=== PATIENT | female | born 1945 | race Caucasian/White ===

== ENCOUNTER 2017-05-22 09:06 | Emergency (ER) | payer MEDICARE, BC ==
[~2017-05-22] VITALS: Ht 165.1 cm; Wt 91.1 kg
[~2017-05-22 09:06] MED LIST: ALBU18HF2 INH; ALLO100T PO; BUPR300T54 PO; CALC-793 PO; DIPH1TAB PO; GLIM1TAB46 PO; GUAI600T45 PO; HYDR-568 PO; IBAN150T PO; LACT1CAP65 PO; LOSA100T28 PO; LYR75C PO; OMEG-143 PO; PRAM0.5T3 PO; SUMA50TA PO; THIO300C PO; TOPI100T18 PO; ZOL50T PO
[2017-05-22] MEDS ORDERED: LORazepam 2 mg/ml vial IV ONE (09:20)
[2017-05-22 09:35] LABS: BASOPHILS % (AUTO) 0.8 % (0-1); EOSINOPHILS # (AUTO) 0.3 X10'3 (0-0.9); EOSINOPHILS % (AUTO) 4.7 % (0-6); HEMATOCRIT 38.2 % (35.0-45.0); HEMOGLOBIN 12.8 g/dl (12.0-16.0); LYMPHOCYTES # (AUTO) 1.3 X10'3 (1.1-4.8); LYMPHOCYTES % (AUTO) 24.7 % (21-51); MEAN CORPUSCULAR HEMOGLOBIN 30.8 PG (27.0-31.0); MEAN CORPUSCULAR HGB CONC 33.4 % (33.0-36.5); MEAN CORPUSCULAR VOLUME 92.1 FL (78-98); MEAN PLATELET VOLUME 7.2 FL (7.4-10.4); MONOCYTES # (AUTO) 0.5 X10'3 (0-0.9); MONOCYTES % (AUTO) 9.4 % (2-12); NEUTROPHILS # (AUTO) 3.3 X10'3 (1.8-7.7); NEUTROPHILS % (AUTO) 60.4 % (42-75); PLATELET COUNT 180 X10'3 (140-440); RED BLOOD COUNT 4.14 X10'6 (4.20-5.60); RED CELL DISTRIBUTION WIDTH 14.1 % (11.5-14.5); WHITE BLOOD COUNT 5.4 X10'3 (4.5-11.0)
[2017-05-22 09:44] LABS: INR 0.9 INR; PARTIAL THROMBOPLASTIN TIME 27 SECONDS (22-32); PROTHROMBIN TIME 9.5 SECONDS (9.0-12.0)
[2017-05-22 09:59] LABS: ALANINE AMINOTRANSFERASE 36 U/L (12-78); ALBUMIN 3.5 G/DL (3.4-5.0); ALBUMIN/GLOBULIN RATIO 0.8 (1.1-1.5); ALKALINE PHOSPHATASE 75 IU/L (46-116); ANION GAP 9 (8-16); ASPARTATE AMINO TRANSFERASE 31 U/L (10-37); BILIRUBIN,TOTAL 0.3 MG/DL (0.1-1.0); BLOOD UREA NITROGEN 27 MG/DL (7-18); BUN/CREATININE RATIO 17.9 (6.6-38.0); CALCIUM 9.1 MG/DL (8.5-10.1); CHLORIDE 108 MMOL/L (99-107); CREATININE 1.51 MG/DL (0.40-0.90); ETHANOL < 0.010 GM/DL (0.0-0.010); GLUCOSE 142 MG/DL (70-104); MAGNESIUM 2.1 MG/DL (1.5-2.4); PHOSPHORUS 2.5 MG/DL (2.3-4.5); POTASSIUM 4.1 MMOL/L (3.5-5.1); SODIUM 141 MMOL/L (135-145); TOTAL CARBON DIOXIDE 23.7 MMOL/L (24-32); TOTAL PROTEIN 7.8 G/DL (6.4-8.2); eGFR 34 ML/MIN
[2017-05-22 10:35] VITALS: BP_SYST 153
[2017-05-22 10:57] LABS: COLOR,URINE YELLOW (Yellow); GLUCOSE, URINE NEGATIVE (Neg); KETONES,URINE NEGATIVE (Neg); LEUKOCYTE ESTERASE ,URINE NEGATIVE (Neg); NITRITES, URINE NEGATIVE (Neg); OCCULT BLOOD,URINE TRACE-INTACT (Neg); PH,URINE 5.5 (4.8-8.0); PROTEIN,URINE TRACE mg/dl (Neg); UROBILINOGEN,URINE 0.2 E.U/dL (0.2-1.0)
[2017-05-22 10:59] LABS: UA COLLECTION TYPE NON-SPECIFIED
[2017-05-22 11:00] LABS: CLARITY,URINE SLIGHTLY CLOUDY (Clear)
[2017-05-22 11:05] LABS: URINE AMPHETAMINE SCREEN NEGATIVE (Neg); URINE BARBITUATE SCREEN NEGATIVE (Neg); URINE BENZODIAZEPINES SCREEN NEGATIVE (Neg); URINE CANNABINOID SCREEN NEGATIVE (Neg); URINE COCAINE SCREEN NEGATIVE (Neg); URINE METHADONE SCREEN NEGATIVE (Neg); URINE OPIATE SCREEN NEGATIVE (Neg); URINE PHENCYCLIDINE SCREEN NEGATIVE (Neg)
[2017-05-22 11:06] LABS: HYALINE CASTS 0-3 /LPF (NEGATIVE); MUCUS STRANDS FEW /LPF (Neg); SQUAMOUS EPITHELIAL CELL,UR MODERATE /LPF (FEW); TRANSITIONAL EPI CELLS,URINE MODERATE /HPF
[2017-05-22 11:07] LABS: BACTERIA,URINE NONE SEEN /HPF (Neg); RBC,URINE 0-2 /HPF (0-2); WBC,URINE 0-4 /HPF (0-4)
[2017-05-22 11:30] VITALS: BP_DIAS 150
== END 2017-05-22 11:31 | disposition home or self-care (01) ==
LOC: ER 09:08
DX: R20.2 Paresthesia of skin (principal); R20.0 Anesthesia of skin; I10 Essential (primary) hypertension; E11.9 Type 2 diabetes mellitus without complications; Z88.0 Allergy status to penicillin; Z79.899 Other long term (current) drug therapy; Z86.73 Personal history of transient ischemic attack (TIA), and cerebral infarction without residual deficits; Z88.5 Allergy status to narcotic agent; Z88.1 Allergy status to other antibiotic agents
CPT/HCPCS: 36415; 70450; 80053; 80305; 80320; 81001; 82948; 83735; 84100; 84443; 84484; 85025; 85610; 85730; 93005; 96374; 99285; J2060

== ENCOUNTER 2019-02-27 11:35 | Inpatient (IN) | payer MEDICARE, BC ==
[~2019-02-27] VITALS: Ht 163.8 cm; Wt 96.3 kg
[2019-02-27 06:00] VITALS: BP 111/73
[~2019-02-27 11:35] MED LIST changes: +AMA1T PO; +BUPR-319 PO; -BUPR300T54 PO; -GLIM1TAB46 PO; +HYDR-4384 PO; -HYDR-568 PO; -IBAN150T PO; +IBAN150T16 PO; -LOSA100T28 PO; +LOSA100T57 PO; +SERT-153 PO; +TOP100T PO; -TOPI100T18 PO; -ZOL50T PO
--- NOTE | 2019-02-27 12:09 | NUR ---
DR POSEY AT BEDSIDE FOR EVALAUTION, PT REPORTS WOKE THIS MORNING AND FELT UNSTEADY SIMILAR TO WHEN YOU ARE DRUNK, ABLE TO WALK BUT STUMBLED AND FELL WHILE WALKING TO BATHROOM AFTER WAKING TODAY, PT DENIES HITTING HEAD, PT REPORTS LEFT EYE SWELLING, HX OF 3 STROKES AFFECTING LEFT SIDE IN THE PAST, PT HAS REDNESS AND SWELLING TO LEFT EYELID, PT REPORTS HX OF ASTHMA, FIRST STROKE 2007, AND SECOND 02/21/2017, PT HAS PACEMAKER, PT HX AFIB TAKING ELIQUIS, PT REPORTS DIFFICULTY SEEING OUT OF LEFT EYE PT HAS INCREASED BLURRED VISION TO LEFT EYE. 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
[2019-02-27 12:21] LABS: BASOPHILS % (AUTO) 0.6 % (0-1); EOSINOPHILS # (AUTO) 0.1 X10'3 (0-0.9); EOSINOPHILS % (AUTO) 1.5 % (0-6); HEMATOCRIT 37.2 % (35.0-45.0); HEMOGLOBIN 12.1 g/dl (12.0-16.0); LYMPHOCYTES # (AUTO) 1.1 X10'3 (1.1-4.8); LYMPHOCYTES % (AUTO) 14.8 % (21-51); MEAN CORPUSCULAR HEMOGLOBIN 28.5 PG (27.0-31.0); MEAN CORPUSCULAR HGB CONC 32.5 g/dL (33.0-36.5); MEAN CORPUSCULAR VOLUME 87.7 FL (78-98); MEAN PLATELET VOLUME 7.6 FL (7.4-10.4); MONOCYTES # (AUTO) 0.6 X10'3 (0-0.9); MONOCYTES % (AUTO) 8.3 % (2-12); NEUTROPHILS # (AUTO) 5.7 X10'3 (1.8-7.7); NEUTROPHILS % (AUTO) 74.8 % (42-75); PLATELET COUNT 199 X10'3 (140-440); RED BLOOD COUNT 4.24 X10'6 (4.20-5.60); RED CELL DISTRIBUTION WIDTH 15.8 % (11.5-14.5); WHITE BLOOD COUNT 7.7 X10'3 (4.5-11.0)
[2019-02-27] MEDS ORDERED: proparacaine 0.5% ophthalmic drops 15ml EACHEYE ONE (12:30)
[2019-02-27 12:35] LABS: PARTIAL THROMBOPLASTIN TIME 29 SECONDS (22-32)
--- NOTE | 2019-02-27 12:35 | NUR ---
EYE CART PLACED AT BEDSIDE WITH ALCAINEDR POSEY AT BEDSIDE FOR EYE EVALUATION
[2019-02-27 12:39] LABS: ALANINE AMINOTRANSFERASE 50 U/L (12-78); ALBUMIN 3.4 G/DL (3.4-5.0); ALBUMIN/GLOBULIN RATIO 0.8 (1.1-1.5); ALKALINE PHOSPHATASE 134 IU/L (46-116); ANION GAP 9 (8-16); ASPARTATE AMINO TRANSFERASE 37 U/L (10-37); BILIRUBIN,TOTAL 0.3 MG/DL (0.1-1.0); BLOOD UREA NITROGEN 26 MG/DL (7-18); BUN/CREATININE RATIO 18.6 (6.6-38.0); CALCIUM 9.2 MG/DL (8.5-10.1); CHLORIDE 104 MMOL/L (99-107); GLUCOSE 218 MG/DL (70-104); POTASSIUM 3.7 MMOL/L (3.5-5.1); SODIUM 138 MMOL/L (135-145); TOTAL CARBON DIOXIDE 25.1 MMOL/L (24-32); TOTAL PROTEIN 7.8 G/DL (6.4-8.2); eGFR 37 ML/MIN
[2019-02-27 12:42] LABS: TROPONIN I 0.07 NG/ML (0.0-0.05)
[2019-02-27] MEDS ORDERED: cephalexin 250mg capsule PO ONE (12:45)
[2019-02-27] MEDS ORDERED: aspirin 325mg tablet PO ONE (12:50)
[2019-02-27] MEDS: moxifloxacin 0.5% ophthalmic drops 3ml LEFTEYE SCH ×2 (13:08→20:47)
--- NOTE | 2019-02-27 13:09 | NUR ---
TELENEURO CONSULT HAS BEEN INITIATED
--- NOTE | 2019-02-27 13:38 | NUR ---
relieving RN for lunch, teleneuro evaluating pt
[2019-02-27] MEDS ORDERED: APIX5TAB3 PO (13:57)
[2019-02-27] MEDS ORDERED: AMIT50TA3 PO (14:43)
[2019-02-27] MEDS ORDERED: GABA-532 PO (14:43)
[2019-02-27] MEDS ORDERED: FLO44IN IH (14:43)
[2019-02-27] MEDS ORDERED: CHOL200016 PO (14:43)
[2019-02-27] MEDS ORDERED: MULT-1007 PO (14:43)
[2019-02-27] MEDS ORDERED: FLUT16SP2 BOTHNARES (14:43)
[2019-02-27] MEDS ORDERED: MAGN400T28 PO (14:43)
[2019-02-27] MEDS ORDERED: TOPI200T16 PO (14:43)
--- NOTE | 2019-02-27 16:12 | NUR ---
Patient currently sleeping. Breathing spontaneously. Not complaining of pain. Will continue to monitor
[2019-02-27] MEDS ORDERED: glucagon, human recombinant 1mg kit SUBCUT PRN (16:55)
[2019-02-27] MEDS ORDERED: magnesium 4gm in 100ml NS 100 ML IV PRN (16:55)
[2019-02-27] MEDS ORDERED: magnesium Cl slow-release 64mg tablet PO PRN (16:55)
[2019-02-27] MEDS ORDERED: diphenhydrAMINE 25mg capsule PO PRN (16:55)
[2019-02-27] MEDS ORDERED: dextrose ORAL solution 15 GM/59 ML bottle PO PRN ×2 (16:55)
[2019-02-27] MEDS ORDERED: non-formulary drug (Ibandronate Sodium (Boniva) 1 TAB) PO SCH (16:55)
[2019-02-27] MEDS ORDERED: dextrose 50%-water 50ml dispensing syringe IV PRN ×2 (16:55)
[2019-02-27] MEDS ORDERED: SUMAtriptan 25 MG tablet PO PRN (16:55)
[2019-02-27] MEDS ORDERED: magnesium hydroxide 30ml (MOM) UD suspension PO PRN (16:55)
[2019-02-27] MEDS ORDERED: magnesium 2GM in 50ml NS 50 ML IV PRN (16:55)
[2019-02-27] MEDS ORDERED: acetaminophen 650mg rectal suppository RC PRN (16:55)
[2019-02-27] MEDS ORDERED: MESSAGE TO PHARMACY PO ONE (16:55)
[2019-02-27] MEDS ORDERED: acetaminophen 325mg tablet PO PRN ×2 (16:55)
[2019-02-27] MEDS ORDERED: mag hydrox/Alum hydrox/simeth 30ml oral suspension PO PRN (16:55)
[2019-02-27] MEDS ORDERED: potassium Cl 20 mEq SR tablet PO PRN ×2 (16:55)
[2019-02-27] MEDS ORDERED: potassium CL 10mEq/100ml bag 100 ML IV PRN ×2 (16:55)
[2019-02-27] MEDS ORDERED: bisacodyl 10mg suppository rectal RC PRN (16:55)
[2019-02-27] MEDS ORDERED: ondansetron/PF 4mg/2ml inj IV PRN (16:55)
[2019-02-27] MEDS ORDERED: diphenoxylate/atropine tablet (Lomotil) PO PRN (16:55)
[2019-02-27 17:30] LABS: CHOLESTEROL 175 MG/DL (0-200); HDL CHOLESTEROL 58 MG/DL (35-60); LDL CHOLESTEROL 105 MG/DL (50-100); TRIGLYCERIDES 115 MG/DL (20-135)
[2019-02-27 17:34] LABS: HEMOGLOBIN A1C 9.2 % (4.5-6.2)
--- NOTE | 2019-02-27 19:00 | NUR ---
Patient in room [facility]TH[facility] 4006. I have received report from MARIBELL Noriega and had the opportunity to ask questions and assume patient care.
--- NOTE | 2019-02-27 19:04 | NUR ---
both cultures have been drawn - pt to Floor just after lab draw.
[2019-02-27 19:32] VITALS: BP 143/68
[2019-02-27] MEDS ORDERED: moxifloxacin 0.5% ophthalmic drops 3ml LEFTEYE SCH (20:00)
[2019-02-27] MEDS: K and/or MAG REPLACEMENT MC SCH (20:00)
[2019-02-27] MEDS: amitriptyline 50mg tablet PO SCH (20:31)
[2019-02-27] MEDS: pramipexole 0.25mg tablet PO SCH (20:31)
[2019-02-27] MEDS: topiramate 100mg tablet PO SCH (20:32)
[2019-02-27] MEDS: gabapentin 300mg capsule PO SCH (20:32)
[2019-02-27] MEDS: apixaban 5mg tablet PO SCH (20:33)
[2019-02-27] MEDS: allopurinol 100mg tablet PO SCH (20:33)
[2019-02-27] MEDS: magnesium oxide 400mg tablet PO SCH (20:44)
[2019-02-27] MEDS: normal saline 1000ml 1,000 ML IV SCH (20:50)
[2019-02-27] MEDS: budesonide 0.5mg/2ml UD nebule IH SCH (20:53)
[2019-02-27] MEDS: albuterol 2.5 MG/3 ML nebule NEB PRN (20:53)
[2019-02-27] MEDS ORDERED: FISH OIL PO SCH (21:00)
[2019-02-27] MEDS ORDERED: DHA PO SCH (21:00)
[2019-02-27] MEDS ORDERED: EPA PO SCH (21:00)
[2019-02-27] MEDS ORDERED: OMEGA PO SCH (21:00)
[2019-02-27 22:00] VITALS: BP 122/83
[2019-02-27] MEDS: insulin glargine (Lantus) pen - multi-dose SQ SCH (22:12)
[2019-02-28] MEDS: cefepime 1GM in D5W 50mL 50 ML IV SCH (00:35)
[2019-02-28] MEDS: VANCOmycin 1250MG/NS 250ml Bag 250 ML IV SCH (01:16)
[2019-02-28 01:43] LABS: COLOR,URINE YELLOW (Yellow); GLUCOSE, URINE 250 mg/dl (Neg); KETONES,URINE NEGATIVE (Neg); LEUKOCYTE ESTERASE ,URINE NEGATIVE (Neg); NITRITES, URINE NEGATIVE (Neg); OCCULT BLOOD,URINE TRACE-INTACT (Neg); PH,URINE 5.5 (4.8-8.0); PROTEIN,URINE 100 mg/dl (Neg); UROBILINOGEN,URINE 0.2 E.U/dL (0.2-1.0)
[2019-02-28 01:49] LABS: CLARITY,URINE SLIGHTLY CLOUDY (Clear); UA COLLECTION TYPE VOIDED
[2019-02-28] MEDS: moxifloxacin 0.5% ophthalmic drops 3ml LEFTEYE SCH ×4 (01:49→21:00)
[2019-02-28 01:50] LABS: WBC,URINE 0-4 /HPF (0-4)
[2019-02-28 01:51] LABS: BACTERIA,URINE 1+ /HPF (Neg); RBC,URINE 0-2 /HPF (0-2); SQUAMOUS EPITHELIAL CELL,UR MANY /LPF (FEW)
[2019-02-28 01:52] LABS: FINE GRANULAR CAST 0-3 /LPF (NEGATIVE); HYALINE CASTS 0-3 /LPF (NEGATIVE); RENAL CELLS, URINE FEW /HPF; TRANSITIONAL EPI CELLS,URINE FEW /HPF
[2019-02-28] MEDS ORDERED: polyvinyl alcohol ophthalmic drops 15ml bottle EACHEYE PRN (02:10)
[2019-02-28] MEDS: normal saline 1000ml 1,000 ML IV SCH ×3 (02:54→22:54)
[2019-02-28 06:00] VITALS: BP_SYST 111; BP_SYST 126; BP_SYST 145; BP_DIAS 72; BP_DIAS 73; BP_DIAS 88
[2019-02-28 06:13] LABS: BASOPHILS % (AUTO) 0.4 % (0-1); EOSINOPHILS # (AUTO) 0.2 X10'3 (0-0.9); EOSINOPHILS % (AUTO) 2.4 % (0-6); HEMATOCRIT 36.7 % (35.0-45.0); HEMOGLOBIN 12.1 g/dl (12.0-16.0); LYMPHOCYTES % (AUTO) 11.4 % (21-51); MEAN CORPUSCULAR HEMOGLOBIN 29.2 PG (27.0-31.0); MEAN CORPUSCULAR HGB CONC 32.9 g/dL (33.0-36.5); MEAN CORPUSCULAR VOLUME 88.5 FL (78-98); MEAN PLATELET VOLUME 7.7 FL (7.4-10.4); MONOCYTES # (AUTO) 0.8 X10'3 (0-0.9); MONOCYTES % (AUTO) 9.1 % (2-12); NEUTROPHILS # (AUTO) 6.7 X10'3 (1.8-7.7); NEUTROPHILS % (AUTO) 76.7 % (42-75); PLATELET COUNT 201 X10'3 (140-440); RED BLOOD COUNT 4.15 X10'6 (4.20-5.60); RED CELL DISTRIBUTION WIDTH 15.7 % (11.5-14.5); WHITE BLOOD COUNT 8.7 X10'3 (4.5-11.0)
--- NOTE | 2019-02-28 06:28 | NUR ---
Problems reprioritized. Patient report given, questions answered & plan of care reviewed with MARIBELL Gomez. Addendum: 02/28/19 at 0628 by Leann Orellana RN Amended: Links added.
[2019-02-28 06:33] LABS: ALANINE AMINOTRANSFERASE 54 U/L (12-78); ALBUMIN 3.1 G/DL (3.4-5.0); ALBUMIN/GLOBULIN RATIO 0.7 (1.1-1.5); ALKALINE PHOSPHATASE 124 IU/L (46-116); ANION GAP 9 (8-16); ASPARTATE AMINO TRANSFERASE 83 U/L (10-37); BILIRUBIN,TOTAL 0.2 MG/DL (0.1-1.0); BLOOD UREA NITROGEN 28 MG/DL (7-18); BUN/CREATININE RATIO 18.5 (6.6-38.0); CHLORIDE 107 MMOL/L (99-107); CHOL/HDL RATIO 3.4 (0.00-4.99); CHOLESTEROL 170 MG/DL (0-200); CREATININE 1.51 MG/DL (0.40-0.90); GLUCOSE 231 MG/DL (70-104); HDL CHOLESTEROL 50 MG/DL (35-60); LDL CHOLESTEROL 101 MG/DL (50-100); PHOSPHORUS 3.9 MG/DL (2.3-4.5); POTASSIUM 4.2 MMOL/L (3.5-5.1); SODIUM 140 MMOL/L (135-145); TOTAL CARBON DIOXIDE 23.9 MMOL/L (24-32); TOTAL PROTEIN 7.6 G/DL (6.4-8.2); TRIGLYCERIDES 162 MG/DL (20-135); eGFR 34 ML/MIN
--- NOTE | 2019-02-28 06:34 | NUR ---
Problems reprioritized. Patient report given, questions answered & plan of care reviewed with MARIBELL Gomez.
--- NOTE | 2019-02-28 06:35 | NUR ---
Patient in room ORTHO 4006. I have received report from Carol Ann REYNA and had the opportunity to ask questions and assume patient care.
[2019-02-28] MEDS: K and/or MAG REPLACEMENT MC SCH ×2 (06:58→21:59)
[2019-02-28] MEDS: aspirin 81mg tablet.DR PO SCH (07:20)
[2019-02-28] MEDS: apixaban 5mg tablet PO SCH ×2 (07:20→21:01)
[2019-02-28] MEDS: magnesium oxide 400mg tablet PO SCH ×2 (07:20→21:59)
[2019-02-28] MEDS: multivitamins, therapeutics tablet PO SCH (07:20)
[2019-02-28] MEDS: vitamin D (cholecalciferol) 1,000 unit tablet PO SCH (07:20)
[2019-02-28] MEDS: atorvastatin 10mg tablet PO SCH (07:20)
[2019-02-28] MEDS: gabapentin 300mg capsule PO SCH ×2 (07:20→21:00)
[2019-02-28] MEDS: losartan 50mg tablet PO SCH (07:20)
[2019-02-28] MEDS: sertraline 50mg tablet PO SCH (07:20)
[2019-02-28] MEDS: fluticasone nasal spray 16GM bottle NS SCH (07:22)
[2019-02-28] MEDS: budesonide 0.5mg/2ml UD nebule IH SCH ×2 (07:47→20:32)
[2019-02-28] MEDS ORDERED: non-formulary drug (Lactobacillus Acidophilus (Probiotic) 1 CAP) PO SCH (08:00)
[2019-02-28] MEDS ORDERED: BUPROPION HCL 450 MG PO SCH (08:00)
--- NOTE | 2019-02-28 08:29 | NUR ---
left eye has conjunctivitis and does not open well to see pupil reaction. Addendum: 02/28/19 at 0832 by Jason Nicole RN Amended: Links added.
[2019-02-28] MEDS: insulin Lispro (HumaLOG) vial - multi-dose SQ SCH ×2 (09:04→14:04)
--- NOTE | 2019-02-28 09:57 | NUR ---
Jason [id number] Re: Jerod Rojas Pt going for MRI and ask for something to help reduce her claustrophobia.
[2019-02-28 10:00] VITALS: BP 108/52
[2019-02-28 10:08] VITALS: BP_SYST 108; BP_SYST 121; BP_SYST 124; BP_DIAS 52; BP_DIAS 74; BP_DIAS 79
[2019-02-28] MEDS ORDERED: LORazepam 2 mg/ml vial IV ONE (10:30)
[2019-02-28] MEDS: buPROPion SR 150mg tablet PO SCH (10:43)
[2019-02-28] MEDS: topiramate 100mg tablet PO SCH ×2 (12:56→21:00)
--- NOTE | 2019-02-28 13:37 | NUR ---
Jason [id number] Re: Yumiko Rojas Pt pacemaker is not compatible with MRI and we cant get MRI done.
[2019-02-28 14:00] VITALS: BP 111/57
--- NOTE | 2019-02-28 15:32 | NUR ---
DM Consult: Pt admit w/ r/o stroke hx T2DM, TIA. A1C 9.2 and TG 162 on admit. Pt receiving vascular ultrasound during RD attempt to visit. Pt will need DM/HH eds prior to d/c. Will continue to monitor. Addendum: 02/28/19 at [address] Amended: Links added.
[2019-02-28] MEDS ORDERED: iohexol 300mg/ml 100ml inj. ONE (15:39)
[2019-02-28 18:00] VITALS: BP 113/47
--- NOTE | 2019-02-28 18:03 | NUR ---
Jason [id number] Re: Yumiko Rojas blood sugar 60, started protocol. Gave 25mg of dextrose now BS 110.
--- NOTE | 2019-02-28 18:25 | NUR ---
Problems reprioritized. Patient report given, questions answered & plan of care reviewed with Carol Ann REYNA.
[2019-02-28] MEDS: allopurinol 100mg tablet PO SCH (21:00)
[2019-02-28] MEDS ORDERED: buPROPion SR 150mg tablet PO SCH (21:00)
[2019-02-28] MEDS: insulin glargine (Lantus) pen - multi-dose SQ SCH (21:00)
[2019-02-28] MEDS: pramipexole 0.25mg tablet PO SCH (21:01)
[2019-02-28] MEDS: amitriptyline 50mg tablet PO SCH (21:59)
[2019-02-28 22:00] VITALS: BP_SYST 129; BP_SYST 133; BP_SYST 147; BP_DIAS 72; BP_DIAS 73; BP_DIAS 79
[2019-03-01] MEDS: cefepime 1GM in D5W 50mL 50 ML IV SCH (00:08)
[2019-03-01] MEDS: VANCOmycin 1250MG/NS 250ml Bag 250 ML IV SCH (01:32)
[2019-03-01 06:00] VITALS: BP 144/67
--- NOTE | 2019-03-01 06:18 | NUR ---
Problems reprioritized. Patient report given, questions answered & plan of care reviewed with MARIBELL Easley.
[2019-03-01 06:32] LABS: BASOPHILS % (AUTO) 0.5 % (0-1); EOSINOPHILS # (AUTO) 0.2 X10'3 (0-0.9); EOSINOPHILS % (AUTO) 3.2 % (0-6); HEMATOCRIT 35.2 % (35.0-45.0); HEMOGLOBIN 11.2 g/dl (12.0-16.0); LYMPHOCYTES % (AUTO) 13.6 % (21-51); MEAN CORPUSCULAR HEMOGLOBIN 28.7 PG (27.0-31.0); MEAN CORPUSCULAR HGB CONC 31.9 g/dL (33.0-36.5); MEAN PLATELET VOLUME 7.8 FL (7.4-10.4); MONOCYTES # (AUTO) 0.7 X10'3 (0-0.9); NEUTROPHILS # (AUTO) 5.2 X10'3 (1.8-7.7); NEUTROPHILS % (AUTO) 72.7 % (42-75); PLATELET COUNT 180 X10'3 (140-440); RED BLOOD COUNT 3.92 X10'6 (4.20-5.60); RED CELL DISTRIBUTION WIDTH 15.5 % (11.5-14.5); WHITE BLOOD COUNT 7.1 X10'3 (4.5-11.0)
[2019-03-01 06:51] LABS: ALANINE AMINOTRANSFERASE 48 U/L (12-78); ALBUMIN 2.9 G/DL (3.4-5.0); ALBUMIN/GLOBULIN RATIO 0.7 (1.1-1.5); ALKALINE PHOSPHATASE 114 IU/L (46-116); ANION GAP 12 (8-16); ASPARTATE AMINO TRANSFERASE 68 U/L (10-37); BILIRUBIN,TOTAL 0.3 MG/DL (0.1-1.0); BLOOD UREA NITROGEN 31 MG/DL (7-18); BUN/CREATININE RATIO 19.1 (6.6-38.0); CALCIUM 8.4 MG/DL (8.5-10.1); CHLORIDE 107 MMOL/L (99-107); CREATININE 1.62 MG/DL (0.40-0.90); GLUCOSE 196 MG/DL (70-104); PHOSPHORUS 3.9 MG/DL (2.3-4.5); SODIUM 139 MMOL/L (135-145); TOTAL CARBON DIOXIDE 20.5 MMOL/L (24-32); TROPONIN I 0.05 NG/ML (0.0-0.05); eGFR 31 ML/MIN
[2019-03-01] MEDS: K and/or MAG REPLACEMENT MC SCH (08:00)
[2019-03-01] MEDS: atorvastatin 10mg tablet PO SCH (08:00)
[2019-03-01] MEDS: fluticasone nasal spray 16GM bottle NS SCH (08:20)
[2019-03-01] MEDS: moxifloxacin 0.5% ophthalmic drops 3ml LEFTEYE SCH ×2 (08:20→12:54)
[2019-03-01] MEDS: sertraline 50mg tablet PO SCH (08:21)
[2019-03-01] MEDS: aspirin 81mg tablet.DR PO SCH (08:21)
[2019-03-01] MEDS: losartan 50mg tablet PO SCH (08:21)
[2019-03-01] MEDS: apixaban 5mg tablet PO SCH (08:21)
[2019-03-01] MEDS: magnesium oxide 400mg tablet PO SCH (08:22)
[2019-03-01] MEDS: multivitamins, therapeutics tablet PO SCH (08:23)
[2019-03-01] MEDS: buPROPion SR 150mg tablet PO SCH (08:23)
[2019-03-01] MEDS: gabapentin 300mg capsule PO SCH (08:23)
[2019-03-01] MEDS: vitamin D (cholecalciferol) 1,000 unit tablet PO SCH (08:23)
[2019-03-01] MEDS: albuterol 2.5 MG/3 ML nebule NEB PRN (08:57)
[2019-03-01] MEDS: budesonide 0.5mg/2ml UD nebule IH SCH (08:58)
[2019-03-01] MEDS: insulin Lispro (HumaLOG) vial - multi-dose SQ SCH ×2 (09:03→14:13)
[2019-03-01 10:00] VITALS: BP 134/65
[2019-03-01] MEDS: topiramate 100mg tablet PO SCH (12:54)
[2019-03-01] MEDS ORDERED: ATOR10TA PO (15:21)
[2019-03-01] MEDS ORDERED: CEFD300C3 PO (15:21)
[2019-03-01] MEDS ORDERED: POLY15DR31 EACHEYE (15:21)
[2019-03-01] MEDS ORDERED: VIG0.5OS LEFTEYE (15:21)
[2019-03-01] MEDS ORDERED: DOXY-224 PO (15:21)
[2019-03-01] MEDS ORDERED: ASPI-1071 PO (15:21)
[2019-03-01] MEDS ORDERED: DOXYCYCLINE 100MG CAPSULE PO SCH (17:30)
[2019-03-03] MEDS ORDERED: VANCOMYCIN LEVEL IV ONE (00:30)
--- NOTE | 2019-03-05 15:25 | NUR ---
Case Management DC follow up: spoke to pt via telephone. pt reports L eye swelling has gone down an she can see again. Denies numbness & weakness to either side, notably L side. Assured HH nurse has been to visit and is assisting pt with ADLs and keeping her medications in order. Pt states she understands what her meds are for, sometimes forgets to take so she has help. Pt has yet to make follow up appts but states her HH nurse will assist. All needs met and questions answered at DC, No further questions at this time
== END 2019-03-01 17:05 | disposition home health service (06) | DRG 602 ==
LOC: ER 11:35 → ED HOLD 16:54 → ORTHO 4S 19:13
PROVIDERS: ADMIT Family Medicine; ATTEND Family Medicine
PROC: BW281ZZ Computerized Tomography (CT Scan) of Head using Low Osmolar Contrast (ICD-10-PCS; principal; 2019-02-28)
PROC: B82 Imaging, Eye, Computerized Tomography (CT Scan) (ICD-10-PCS; 2019-02-28)
DX: L03.213 Periorbital cellulitis (principal); G92 Toxic encephalopathy; I21.A1 Myocardial infarction type 2; N17.9 Acute kidney failure, unspecified; I69.354 Hemiplegia and hemiparesis following cerebral infarction affecting left non-dominant side; F32.9 Major depressive disorder, single episode, unspecified; E66.01 Morbid (severe) obesity due to excess calories; H10.9 Unspecified conjunctivitis; E11.22 Type 2 diabetes mellitus with diabetic chronic kidney disease; E11.51 Type 2 diabetes mellitus with diabetic peripheral angiopathy without gangrene; F41.9 Anxiety disorder, unspecified; Z96.652 Presence of left artificial knee joint; G43.909 Migraine, unspecified, not intractable, without status migrainosus; G47.33 Obstructive sleep apnea (adult) (pediatric); W06.XXXA Fall from bed, initial encounter; I48.0 Paroxysmal atrial fibrillation; I12.9 Hypertensive chronic kidney disease with stage 1 through stage 4 chronic kidney disease, or unspecified chronic kidney disease; I49.5 Sick sinus syndrome; J44.9 Chronic obstructive pulmonary disease, unspecified; M06.9 Rheumatoid arthritis, unspecified; M10.9 Gout, unspecified; M19.90 Unspecified osteoarthritis, unspecified site; N18.9 Chronic kidney disease, unspecified; Z79.01 Long term (current) use of anticoagulants; Z79.899 Other long term (current) drug therapy; Z80.3 Family history of malignant neoplasm of breast; Z88.0 Allergy status to penicillin; Z88.1 Allergy status to other antibiotic agents; Z95.0 Presence of cardiac pacemaker; Z98.42 Cataract extraction status, left eye; Z98.41 Cataract extraction status, right eye; Y93.89 Activity, other specified; Y92.89 Other specified places as the place of occurrence of the external cause; Y99.8 Other external cause status; Z88.5 Allergy status to narcotic agent; Z68.35 Body mass index [BMI] 35.0-35.9, adult; Z90.49 Acquired absence of other specified parts of digestive tract
CPT/HCPCS: 36415; 70450; 70460; 70482; 71045; 80053; 80061; 81001; 82948; 83036; 83605; 83735; 84100; 84484; 85025; 85610; 85651; 85730; 87040; 87081; 92508; 92616; 93005; 93306; 93880; 94640; 94760; 97116; 97161; 97530; 99285; G0378; J0692; J1815; J2060; J3370; J7030; J7626; Q9967

== ENCOUNTER 2019-03-25 18:44 | Emergency (ER) | payer MEDICARE, BC ==
[~2019-03-25] VITALS: Ht 162.6 cm; Wt 100.0 kg
[~2019-03-25 18:44] MED LIST changes: +AMIT50TA3 PO; +APIX5TAB3 PO; +ASPI-1071 PO; +ATOR10TA PO; -CALC-793 PO; +CEFD300C3 PO; +CHOL200016 PO; +DOXY-224 PO; +FLO44IN IH; +FLUT16SP2 BOTHNARES; +GABA-532 PO; -HYDR-4384 PO; -LYR75C PO; +MAGN400T28 PO; +MULT-1007 PO; +POLY15DR31 EACHEYE; -THIO300C PO; +TOPI200T16 PO; +VIG0.5OS LEFTEYE
[2019-03-25 19:09] VITALS: BP 162/126
[2019-03-25] MEDS ORDERED: ONDA4TAB6 PO (20:40)
[2019-03-25] MEDS ORDERED: FAMC500T23 PO (20:40)
[2019-03-25] MEDS ORDERED: LIDO30CR23 TOP (20:40)
[2019-03-25] MEDS ORDERED: HYDR-4383 PO (20:40)
[2019-03-25] MEDS ORDERED: HYDROcodone/acetaminophen 5mg/325mg tablet PO ONE (20:45)
[2019-03-25] MEDS ORDERED: LIDOcaine/PRILOcaine 5gm cream TP ONE (20:45)
[2019-03-25] MEDS ORDERED: ondansetron 4mg rapidly disintigrating tab PO ONE (20:45)
== END 2019-03-25 21:14 | disposition home or self-care (01) ==
LOC: ER 18:45
DX: B02.9 Zoster without complications (principal); M54.5 Low back pain; R21 Rash and other nonspecific skin eruption; I10 Essential (primary) hypertension; E11.9 Type 2 diabetes mellitus without complications; Z86.73 Personal history of transient ischemic attack (TIA), and cerebral infarction without residual deficits; Z88.0 Allergy status to penicillin; Z88.5 Allergy status to narcotic agent; Z88.1 Allergy status to other antibiotic agents; Z79.01 Long term (current) use of anticoagulants; Z79.82 Long term (current) use of aspirin; Z79.899 Other long term (current) drug therapy
CPT/HCPCS: 99284

== ENCOUNTER 2019-04-04 10:55 | Emergency (ER) | payer MEDICARE, BC ==
[~2019-04-04] VITALS: Ht 162.6 cm; Wt 108.2 kg
[~2019-04-04 10:55] MED LIST changes: -CEFD300C3 PO; +FAMC500T23 PO; +HYDR-4383 PO; +LIDO30CR23 TOP; +ONDA4TAB6 PO
[2019-04-04 12:20] LABS: BASOPHILS % (AUTO) 0.5 % (0-1); EOSINOPHILS # (AUTO) 0.1 X10'3 (0-0.9); EOSINOPHILS % (AUTO) 1.7 % (0-6); HEMATOCRIT 36.7 % (35.0-45.0); HEMOGLOBIN 11.9 g/dl (12.0-16.0); LYMPHOCYTES # (AUTO) 1.2 X10'3 (1.1-4.8); LYMPHOCYTES % (AUTO) 19.4 % (21-51); MEAN CORPUSCULAR HEMOGLOBIN 28.8 PG (27.0-31.0); MEAN CORPUSCULAR HGB CONC 32.4 g/dL (33.0-36.5); MEAN CORPUSCULAR VOLUME 88.7 FL (78-98); MEAN PLATELET VOLUME 7.8 FL (7.4-10.4); MONOCYTES # (AUTO) 0.8 X10'3 (0-0.9); MONOCYTES % (AUTO) 12.3 % (2-12); NEUTROPHILS # (AUTO) 4.1 X10'3 (1.8-7.7); NEUTROPHILS % (AUTO) 66.1 % (42-75); PLATELET COUNT 172 X10'3 (140-440); RED BLOOD COUNT 4.13 X10'6 (4.20-5.60); RED CELL DISTRIBUTION WIDTH 16.1 % (11.5-14.5); WHITE BLOOD COUNT 6.2 X10'3 (4.5-11.0)
[2019-04-04 12:32] LABS: PARTIAL THROMBOPLASTIN TIME 39 SECONDS (22-32)
[2019-04-04 13:54] VITALS: BP 165/91
== END 2019-04-04 13:48 | disposition home or self-care (01) ==
LOC: ER 10:56
DX: S50.12XA Contusion of left forearm, initial encounter (principal); I10 Essential (primary) hypertension; E11.9 Type 2 diabetes mellitus without complications; Z86.73 Personal history of transient ischemic attack (TIA), and cerebral infarction without residual deficits; Z88.0 Allergy status to penicillin; Z88.1 Allergy status to other antibiotic agents; Z88.5 Allergy status to narcotic agent; Z79.82 Long term (current) use of aspirin; Z79.01 Long term (current) use of anticoagulants; Z79.899 Other long term (current) drug therapy; W01.190A Fall on same level from slipping, tripping and stumbling with subsequent striking against furniture, initial encounter; Y93.89 Activity, other specified; Y92.89 Other specified places as the place of occurrence of the external cause; Y99.8 Other external cause status
CPT/HCPCS: 36415; 85025; 85610; 85730; 99284

== ENCOUNTER 2019-08-20 11:51 | Emergency (ER) | payer MEDICARE, BC ==
[~2019-08-20] VITALS: Ht 165.1 cm; Wt 84.0 kg
[~2019-08-20 11:51] MED LIST changes: -ALBU18HF2 INH; +AMIT-189 PO; -AMIT50TA3 PO; -ASPI-1071 PO; -ATOR10TA PO; +BLEOS LEFTEYE; -BUPR-319 PO; +CARV-50 PO; -CHOL200016 PO; -DIPH1TAB PO; -DOXY-224 PO; -FAMC500T23 PO; -FLO44IN IH; -GABA-532 PO; -GUAI600T45 PO; -HYDR-4383 PO; -LACT1CAP65 PO; -LIDO30CR23 TOP; -MAGN400T28 PO; -MULT-1007 PO; -OMEG-143 PO; -ONDA4TAB6 PO; -POLY15DR31 EACHEYE; +POTA10CA44 PO; -PRAM0.5T3 PO; -SERT-153 PO; +SPIR25TA5 PO; -SUMA50TA PO; -TOP100T PO; -TOPI200T16 PO; -VIG0.5OS LEFTEYE
--- NOTE | 2019-08-20 13:45 | NUR ---
Pt given apple juice and a turkey sandwich per Dr Ribeiro order. Will recheck BG at 1430
[2019-08-20 13:53] LABS: BASOPHILS # (AUTO) 0.1 X10'3 (0-0.2); BASOPHILS % (AUTO) 0.9 % (0-1); EOSINOPHILS # (AUTO) 0.3 X10'3 (0-0.9); EOSINOPHILS % (AUTO) 4.4 % (0-6); HEMATOCRIT 30.1 % (35.0-45.0); HEMOGLOBIN 9.7 g/dl (12.0-16.0); LYMPHOCYTES # (AUTO) 1.1 X10'3 (1.1-4.8); LYMPHOCYTES % (AUTO) 17.5 % (21-51); MEAN CORPUSCULAR HEMOGLOBIN 29.1 PG (27.0-31.0); MEAN CORPUSCULAR HGB CONC 32.2 g/dL (33.0-36.5); MEAN CORPUSCULAR VOLUME 90.3 FL (78-98); MEAN PLATELET VOLUME 7.4 FL (7.4-10.4); MONOCYTES # (AUTO) 0.8 X10'3 (0-0.9); MONOCYTES % (AUTO) 13.3 % (2-12); NEUTROPHILS # (AUTO) 3.9 X10'3 (1.8-7.7); NEUTROPHILS % (AUTO) 63.9 % (42-75); PLATELET COUNT 181 X10'3 (140-440); RED BLOOD COUNT 3.33 X10'6 (4.20-5.60); RED CELL DISTRIBUTION WIDTH 16.2 % (11.5-14.5); WHITE BLOOD COUNT 6.1 X10'3 (4.5-11.0)
[2019-08-20 14:08] LABS: PARTIAL THROMBOPLASTIN TIME 42 SECONDS (22-32)
[2019-08-20 14:18] LABS: ALANINE AMINOTRANSFERASE 28 U/L (12-78); ALBUMIN 3.2 G/DL (3.4-5.0); ALBUMIN/GLOBULIN RATIO 0.7 (1.1-1.5); ALKALINE PHOSPHATASE 89 IU/L (46-116); ANION GAP 7 (8-16); ASPARTATE AMINO TRANSFERASE 28 U/L (10-37); BILIRUBIN,TOTAL 0.4 MG/DL (0.1-1.0); BLOOD UREA NITROGEN 48 MG/DL (7-18); BUN/CREATININE RATIO 24.7 (6.6-38.0); CALCIUM 9.3 MG/DL (8.5-10.1); CHLORIDE 103 MMOL/L (99-107); CREATININE 1.94 MG/DL (0.40-0.90); GLUCOSE 81 MG/DL (70-104); POTASSIUM 5.2 MMOL/L (3.5-5.1); SODIUM 137 MMOL/L (135-145); TOTAL CARBON DIOXIDE 26.6 MMOL/L (24-32); eGFR 25 ML/MIN
[2019-08-20 14:58] VITALS: BP 133/84
[2019-08-20 15:17] LABS: OCCULT BLOOD STOOL NEGATIVE (Neg)
== END 2019-08-20 15:00 | disposition home or self-care (01) ==
LOC: ER 11:52
DX: E11.649 Type 2 diabetes mellitus with hypoglycemia without coma (principal); I10 Essential (primary) hypertension; J44.9 Chronic obstructive pulmonary disease, unspecified; Z86.73 Personal history of transient ischemic attack (TIA), and cerebral infarction without residual deficits; Z95.0 Presence of cardiac pacemaker; Z88.0 Allergy status to penicillin; Z88.5 Allergy status to narcotic agent; Z88.1 Allergy status to other antibiotic agents; Z79.01 Long term (current) use of anticoagulants; Z79.899 Other long term (current) drug therapy
CPT/HCPCS: 36415; 71045; 80053; 82272; 82948; 85025; 85610; 85730; 93005; 99285

== ENCOUNTER 2019-09-25 18:04 | Emergency (ER) | payer MEDICARE, BC ==
[~2019-09-25] VITALS: Ht 162.6 cm; Wt 113.0 kg
[~2019-09-25 18:04] MED LIST changes: +ALBU18HF2 INH; +ATOR40TA71 PO; -BLEOS LEFTEYE; -CARV-50 PO; +CARV25TA2 PO; +FERR325T29 PO; +FLO110IN IH; -FLUT16SP2 BOTHNARES; +FURO40TA4 PO; +HYDR-4353 PO; +IPRA3AMP31 IH; -LOSA100T57 PO; +LOSA25TA41 PO; +PIOG45TA65 PO; -POTA10CA44 PO; +POTA10TA36 PO; +PRAM1TAB6 PO; +TOP100T PO
[2019-09-25 18:56] LABS: EOSINOPHILS # (AUTO) 0.4 X10'3 (0-0.9); HEMATOCRIT 26.8 % (35.0-45.0); HEMOGLOBIN 8.6 g/dl (12.0-16.0); LYMPHOCYTES # (AUTO) 0.8 X10'3 (1.1-4.8); LYMPHOCYTES % (AUTO) 17.8 % (21-51); MEAN CORPUSCULAR HEMOGLOBIN 29.5 PG (27.0-31.0); MEAN CORPUSCULAR HGB CONC 32.1 g/dL (33.0-36.5); MEAN CORPUSCULAR VOLUME 91.7 FL (78-98); MEAN PLATELET VOLUME 7.3 FL (7.4-10.4); MONOCYTES # (AUTO) 0.9 X10'3 (0-0.9); MONOCYTES % (AUTO) 19.3 % (2-12); NEUTROPHILS # (AUTO) 2.4 X10'3 (1.8-7.7); NEUTROPHILS % (AUTO) 52.9 % (42-75); PLATELET COUNT 286 X10'3 (140-440); RED BLOOD COUNT 2.92 X10'6 (4.20-5.60); RED CELL DISTRIBUTION WIDTH 17.9 % (11.5-14.5); WHITE BLOOD COUNT 4.6 X10'3 (4.5-11.0)
[2019-09-25] MEDS ORDERED: SODIUM ZIRCONIUM CYCLOSILICATE 10 GM POWD.PACK PO STA (19:04)
[2019-09-25] MEDS ORDERED: calcium chloride 100 MG/1 ML inj IV ONE (19:05)
[2019-09-25 19:12] LABS: ALANINE AMINOTRANSFERASE 18 U/L (12-78); ALBUMIN 2.5 G/DL (3.4-5.0); ALBUMIN/GLOBULIN RATIO 0.6 (1.1-1.5); ALKALINE PHOSPHATASE 129 IU/L (46-116); ANION GAP 3 (8-16); ASPARTATE AMINO TRANSFERASE 28 U/L (10-37); BILIRUBIN,TOTAL 0.2 MG/DL (0.1-1.0); BLOOD UREA NITROGEN 43 MG/DL (7-18); BUN/CREATININE RATIO 28.3 (6.6-38.0); CHLORIDE 103 MMOL/L (99-107); CREATININE 1.52 MG/DL (0.40-0.90); GLUCOSE 128 MG/DL (70-104); SODIUM 137 MMOL/L (135-145); TOTAL CARBON DIOXIDE 31.1 MMOL/L (24-32); TOTAL PROTEIN 6.7 G/DL (6.4-8.2); eGFR 33 ML/MIN
[2019-09-25 19:19] LABS: CLARITY,URINE CLEAR (Clear); COLOR,URINE YELLOW (Yellow); GLUCOSE, URINE NEGATIVE (Neg); KETONES,URINE NEGATIVE (Neg); LEUKOCYTE ESTERASE ,URINE NEGATIVE (Neg); NITRITES, URINE NEGATIVE (Neg); OCCULT BLOOD,URINE NEGATIVE (Neg); PROTEIN,URINE NEGATIVE (Neg); UROBILINOGEN,URINE 0.2 E.U/dL (0.2-1.0)
[2019-09-25] MEDS: albuterol 2.5 MG/3 ML nebule CONTNEB PRN ×2 (19:21→20:44)
[2019-09-25 19:24] LABS: UA COLLECTION TYPE STRAIGHT CATH
--- NOTE | 2019-09-25 19:47 | NUR ---
PT CO LEFT ARM PAIN DUE TO PREVIOUS FRACTURE AND IS RX NORCO 10 MG. MATILDE CHAVIS VERBAL ORDER 10 MG NORCO
[2019-09-25] MEDS ORDERED: HYDROcodone/acetaminophen 10/325mg tab PO ONE (19:50)
[2019-09-25 21:39] VITALS: BP 119/65
== END 2019-09-25 22:08 | disposition home or self-care (01) ==
LOC: ER 18:05
DX: J96.91 Respiratory failure, unspecified with hypoxia (principal); J44.9 Chronic obstructive pulmonary disease, unspecified; R53.1 Weakness; R42 Dizziness and giddiness; I48.91 Unspecified atrial fibrillation; I10 Essential (primary) hypertension; I25.2 Old myocardial infarction; E11.9 Type 2 diabetes mellitus without complications; Z86.73 Personal history of transient ischemic attack (TIA), and cerebral infarction without residual deficits; Z95.0 Presence of cardiac pacemaker; Z88.0 Allergy status to penicillin; Z88.5 Allergy status to narcotic agent; Z88.1 Allergy status to other antibiotic agents; Z79.899 Other long term (current) drug therapy
CPT/HCPCS: 36415; 71045; 80053; 81003; 82948; 85025; 93005; 94644; 94760; 99285

== ENCOUNTER → 2019-11-01 | Emergency (ER) | payer MEDICARE, BC ==
[~2019-11-01] VITALS: Ht 162.6 cm; Wt 100.0 kg
[~2019-11-01] MED LIST changes: +DOXY-1 PO; +HYDROcodone/acetaminophen 10/325mg tab PO ONE; +normal saline 1000ML IV soln IVB ONE
--- NOTE | 2019-11-01 09:27 | NUR ---
EKG 3969 LS
[2019-11-01 10:00] VITALS: BP 122/77
[2019-11-01 10:06] LABS: BASOPHILS # (AUTO) 0.1 X10'3 (0-0.2); BASOPHILS % (AUTO) 1.4 % (0-1); EOSINOPHILS # (AUTO) 0.3 X10'3 (0-0.9); EOSINOPHILS % (AUTO) 7.1 % (0-6); HEMATOCRIT 24.5 % (35.0-45.0); HEMOGLOBIN 7.9 g/dl (12.0-16.0); LYMPHOCYTES # (AUTO) 0.7 X10'3 (1.1-4.8); LYMPHOCYTES % (AUTO) 15.3 % (21-51); MEAN CORPUSCULAR HEMOGLOBIN 29.4 PG (27.0-31.0); MEAN CORPUSCULAR HGB CONC 32.2 g/dL (33.0-36.5); MEAN CORPUSCULAR VOLUME 91.3 FL (78-98); MEAN PLATELET VOLUME 7.5 FL (7.4-10.4); MONOCYTES # (AUTO) 0.5 X10'3 (0-0.9); NEUTROPHILS # (AUTO) 2.7 X10'3 (1.8-7.7); NEUTROPHILS % (AUTO) 64.2 % (42-75); PLATELET COUNT 214 X10'3 (140-440); RED BLOOD COUNT 2.68 X10'6 (4.20-5.60); RED CELL DISTRIBUTION WIDTH 16.6 % (11.5-14.5); WHITE BLOOD COUNT 4.2 X10'3 (4.5-11.0)
[2019-11-01 10:20] LABS: ALANINE AMINOTRANSFERASE 29 U/L (12-78); ALBUMIN 3.2 G/DL (3.4-5.0); ALBUMIN/GLOBULIN RATIO 0.8 (1.1-1.5); ALKALINE PHOSPHATASE 82 IU/L (46-116); ANION GAP 5 (8-16); ASPARTATE AMINO TRANSFERASE 27 U/L (10-37); BILIRUBIN,TOTAL 0.2 MG/DL (0.1-1.0); BLOOD UREA NITROGEN 38 MG/DL (7-18); CALCIUM 9.1 MG/DL (8.5-10.1); CHLORIDE 102 MMOL/L (99-107); CREATININE 1.41 MG/DL (0.40-0.90); GLUCOSE 137 MG/DL (70-104); POTASSIUM 3.7 MMOL/L (3.5-5.1); SODIUM 136 MMOL/L (135-145); TOTAL CARBON DIOXIDE 29.3 MMOL/L (24-32); TOTAL PROTEIN 7.2 G/DL (6.4-8.2); eGFR 36 ML/MIN
--- NOTE | 2019-11-01 12:24 | NUR ---
CALLED FRIEND JAVID TO [employer] PT [phone]
== END | disposition home or self-care (01) ==
LOC: ER 09:13
DX: S62.393A Other fracture of third metacarpal bone, left hand, initial encounter for closed fracture (principal); S62.395A Other fracture of fourth metacarpal bone, left hand, initial encounter for closed fracture; S62.397A Other fracture of fifth metacarpal bone, left hand, initial encounter for closed fracture; S00.83XA Contusion of other part of head, initial encounter; S09.90XA Unspecified injury of head, initial encounter; S01.81XA Laceration without foreign body of other part of head, initial encounter; M79.642 Pain in left hand; I48.91 Unspecified atrial fibrillation; I10 Essential (primary) hypertension; I25.2 Old myocardial infarction; J44.9 Chronic obstructive pulmonary disease, unspecified; E11.9 Type 2 diabetes mellitus without complications; Z86.73 Personal history of transient ischemic attack (TIA), and cerebral infarction without residual deficits; Z95.0 Presence of cardiac pacemaker; Z88.0 Allergy status to penicillin; Z88.1 Allergy status to other antibiotic agents; Z88.5 Allergy status to narcotic agent; Z79.899 Other long term (current) drug therapy; W18.39XA Other fall on same level, initial encounter; Y93.01 Activity, walking, marching and hiking; Y92.89 Other specified places as the place of occurrence of the external cause; Y99.8 Other external cause status
CPT/HCPCS: 29125; 36415; 70450; 70486; 72125; 73130; 80053; 85025; 93005; 96360; 99285; J7030

== ENCOUNTER 2020-06-03 07:56 | Day surgery (SDC) | payer MEDICARE, BC ==
[2020-06-02 14:25] LABS: BASOPHILS % (AUTO) 0.8 % (0-1); EOSINOPHILS # (AUTO) 0.2 X10'3 (0-0.9); EOSINOPHILS % (AUTO) 4.2 % (0-6); HEMATOCRIT 28.2 % (35.0-45.0); HEMOGLOBIN 8.9 g/dl (12.0-16.0); LYMPHOCYTES # (AUTO) 0.6 X10'3 (1.1-4.8); LYMPHOCYTES % (AUTO) 12.2 % (21-51); MEAN CORPUSCULAR HEMOGLOBIN 31.7 PG (27.0-31.0); MEAN CORPUSCULAR HGB CONC 31.6 g/dL (33.0-36.5); MEAN CORPUSCULAR VOLUME 100.4 FL (78-98); MEAN PLATELET VOLUME 8.2 FL (7.4-10.4); MONOCYTES # (AUTO) 0.5 X10'3 (0-0.9); MONOCYTES % (AUTO) 10.1 % (2-12); NEUTROPHILS # (AUTO) 3.6 X10'3 (1.8-7.7); NEUTROPHILS % (AUTO) 72.7 % (42-75); PLATELET COUNT 128 X10'3 (140-440); RED BLOOD COUNT 2.81 X10'6 (4.20-5.60); RED CELL DISTRIBUTION WIDTH 18.2 % (11.5-14.5); WHITE BLOOD COUNT 4.9 X10'3 (4.5-11.0)
[2020-06-02 14:36] LABS: ALBUMIN 3.3 G/DL (3.4-5.0); ANION GAP 8 (8-16); BLOOD UREA NITROGEN 61 MG/DL (7-18); BUN/CREATININE RATIO 32.6 (6.6-38.0); CALCIUM 8.6 MG/DL (8.5-10.1); CHLORIDE 105 MMOL/L (99-107); CREATININE 1.87 MG/DL (0.40-0.90); GLUCOSE 195 MG/DL (70-104); POTASSIUM 4.3 MMOL/L (3.5-5.1); SODIUM 141 MMOL/L (135-145); TOTAL CARBON DIOXIDE 27.6 MMOL/L (24-32); eGFR 26 ML/MIN
[2020-06-03] VITALS (12 sets, daily range): BP systolic 100–138; BP diastolic 50–118
[~2020-06-03] VITALS: Ht 163.8 cm; Wt 103.2 kg
[~2020-06-03 07:56] MED LIST changes: -DOXY-1 PO; -HYDROcodone/acetaminophen 10/325mg tab PO ONE; -normal saline 1000ML IV soln IVB ONE
[2020-06-03] MEDS ORDERED: amiodarone 150mg/dext, iso-os 100 ML IV ONE (08:20)
[2020-06-03] MEDS ORDERED: normal saline 1000ml 1,000 ML IV SCH (08:20)
[2020-06-03] MEDS ORDERED: MIDAZolam 1mg/ml 10ml vial IV ONE (08:20)
[2020-06-03] MEDS ORDERED: LORazepam 0.5 MG tablet PO ONE (08:20)
[2020-06-03] MEDS ORDERED: diphenhydrAMINE 25mg capsule PO ONE (08:20)
[2020-06-03] MEDS ORDERED: morphine 10mg/ml inj. IV ONE (08:20)
[2020-06-03] MEDS ORDERED: atropine 0.1mg/ml 10ml syringe IV ONE (08:20)
[2020-06-03] MEDS ORDERED: GUAI600T45 PO (08:53)
[2020-06-03] MEDS ORDERED: POLY119P2 PO (08:53)
[2020-06-03] MEDS ORDERED: CHOL500050 PO (08:53)
[2020-06-03] MEDS ORDERED: FLO44IN IH (08:53)
[2020-06-03] MEDS ORDERED: PHYT100T PO (08:54)
[2020-06-03] MEDS ORDERED: CALC600T35 PEG (08:54)
[2020-06-03] MEDS ORDERED: OMEG-143 PO (08:54)
[2020-06-03] MEDS ORDERED: PUMP300C PO (08:54)
== END 2020-06-03 16:55 | disposition home or self-care (01) ==
LOC: SSTAY O 07:56
PROVIDERS: ATTEND Internal Medicine Cardiovascular Disease
DX: I48.19 Other persistent atrial fibrillation (principal); I25.10 Atherosclerotic heart disease of native coronary artery without angina pectoris; E78.5 Hyperlipidemia, unspecified; E11.9 Type 2 diabetes mellitus without complications; I11.0 Hypertensive heart disease with heart failure; I50.22 Chronic systolic (congestive) heart failure; J44.9 Chronic obstructive pulmonary disease, unspecified; G47.30 Sleep apnea, unspecified; I42.0 Dilated cardiomyopathy; G47.00 Insomnia, unspecified; M10.9 Gout, unspecified; G43.909 Migraine, unspecified, not intractable, without status migrainosus; G25.81 Restless legs syndrome; M81.0 Age-related osteoporosis without current pathological fracture; G40.909 Epilepsy, unspecified, not intractable, without status epilepticus; F32.9 Major depressive disorder, single episode, unspecified; M19.09 Primary osteoarthritis, other specified site; F41.1 Generalized anxiety disorder; Z95.0 Presence of cardiac pacemaker; E66.9 Obesity, unspecified; Z68.36 Body mass index [BMI] 36.0-36.9, adult; Z79.01 Long term (current) use of anticoagulants; Z79.84 Long term (current) use of oral hypoglycemic drugs; Z79.899 Other long term (current) drug therapy; Z86.73 Personal history of transient ischemic attack (TIA), and cerebral infarction without residual deficits; Z98.890 Other specified postprocedural states; Z96.652 Presence of left artificial knee joint; Z80.9 Family history of malignant neoplasm, unspecified
CPT/HCPCS: 36415; 80048; 82948; 85025; 85610; 92960; 93005; 94799; J2250; J2270; J7030; Q0163